=== PATIENT | female | born 1995 | race Caucasian/White ===

== ENCOUNTER → 2021-03-18 12:22 | Outpatient (CLI) | payer OTHER, SELFPAY ==
--- NOTE | 2021-03-18 | DI.MRI.S_ITS ---
PROCEDURE: MR SHOULDER LT WO CON INDICATIONS: Pain in right shoulder TECHNIQUE: Noncontrast oblique coronal T2 fast spin echo with fat saturation, oblique sagittal T1 spin echo and T2 fast spin echo with fat saturation, axial T1 spin echo and T2 fast spin echo with fat saturation through the shoulder. COMPARISON: [facility], MR, MR SHOULDER RT WO CON, 03/18/2021, 12:44. [facility] Outside Film, CR, XR SHOULDER 2+ VIEWS RIGHT, 01/16/2021, 9:25. FINDINGS: Image quality: Excellent. Rotator cuff: There is partial-thickness tear of the infraspinatus tendon involving both articular and bursal surfaces. There is supraspinatus and subscapularis tendinitis. The supraspinatus tendon appears intact. Sagittal images demonstrate no rotator cuff muscle atrophy. Bones and bursae: No bone marrow contusions or fractures. Mild acromioclavicular joint degeneration. The acromion demonstrates conventional anatomy, without an os acromiale. No pathologic subacromial-subdeltoid or subcoracoid bursal fluid is present. Capsule and soft tissues: Labrum appears intact. The long head of the biceps tendon demonstrates normal location and morphology. The rotator interval appears normal, without fibrosis. The coracohumeral ligament is normal in thickness. IMPRESSION: 1. Partial thickness tear of the infraspinatus tendon. 2. Supraspinatus and subscapularis tendinitis. 3. Mild acromioclavicular joint degeneration. Dictated by: Darrius Arias M.D. on 03/20/2021 at 9:11 Approved by: Darrius Arias M.D. on 03/20/2021 at 10:44
--- NOTE | 2021-03-18 | DI.MRI.S_ITS ---
PROCEDURE: MR SHOULDER RT WO CON INDICATIONS: Pain in right shoulder TECHNIQUE: Noncontrast oblique coronal T2 fast spin echo with fat saturation, oblique sagittal T1 spin echo and T2 fast spin echo with fat saturation, axial T1 spin echo and T2 fast spin echo with fat saturation through the shoulder. COMPARISON: [facility], MR, MR SHOULDER LT WO CON, 03/18/2021, 13:05. SN[facility] Outside Film, CR, XR SHOULDER 2+ VIEWS RIGHT, 01/16/2021, 9:25. FINDINGS: Image quality: Excellent. Rotator cuff: There is partial-thickness tear of the supraspinatus tendon involving the articular surface and the footprint. Mild subscapularis tendinitis. The infraspinatus appears intact. Sagittal images demonstrate no rotator cuff muscle atrophy. Bones and bursae: No bone marrow contusions or fractures. There is mild acromioclavicular joint degeneration. The acromion demonstrates conventional anatomy, without an os acromiale. Small subcoracoid bursal fluid is present suggesting mild bursitis. Capsule and soft tissues: Labrum appears intact The long head of the biceps tendon demonstrates normal location and morphology. The rotator interval appears normal, without fibrosis. The coracohumeral ligament is normal in thickness. IMPRESSION: 1. Partial thickness tear of the supraspinatus tendon. 2. Mild subscapularis tendinitis. 3. Mild acromioclavicular joint degeneration. 4. Mild subcoracoid bursitis. Dictated by: Darrius Arias M.D. on 03/20/2021 at 9:08 Approved by: Darrius Arias M.D. on 03/20/2021 at 10:39
== END ==
PROVIDERS: Referring Provider Family Medicine; Visit Provider Family Medicine
DX: M75.112 Incomplete rotator cuff tear or rupture of left shoulder, not specified as traumatic (principal); M75.111 Incomplete rotator cuff tear or rupture of right shoulder, not specified as traumatic; M19.011 Primary osteoarthritis, right shoulder; M19.012 Primary osteoarthritis, left shoulder; M77.8 Other enthesopathies, not elsewhere classified; M25.511 Pain in right shoulder; M25.512 Pain in left shoulder
CPT/HCPCS: 73221

== ENCOUNTER → 2021-04-05 07:12 | Outpatient (CLI) | payer OTHER, SELFPAY ==
--- NOTE | 2021-04-05 07:14 | DI.MRI.S_ITS ---
PROCEDURE: MR CERVICAL SPINE WO CON INDICATIONS: Cervicalgia TECHNIQUE: Noncontrast sagittal T1 spin echo and T2 fast spin echo, sagittal STIR, foraminal oblique sagittal T2 fast spin echo, and axial gradient echo or T2 fast spin echo through the cervical spine. COMPARISON: None. FINDINGS: Image quality: Excellent. Alignment and Curvature: There is loss of normal cervical lordosis. Bone Marrow: Marrow demonstrates normal overall signal. Spinal Cord: Visualized spinal cord has normal size and signal. No cerebellar tonsillar herniation. Paraspinous Soft Tissues: No paravertebral masses. Prevertebral soft tissues are normal in thickness. C2-C3: Normal appearance. C3-C4: Mild disc desiccation and diffuse disc bulge. Minimal canal stenosis. No foraminal stenosis. C4-C5: Mild disc desiccation. No significant canal, or foraminal stenosis. C5-C6: Normal appearance. C6-C7: Normal appearance. C7-T1: Normal appearance. IMPRESSION: 1. Loss of normal cervical lordosis, suggestive of muscle spasm. 2. No neural impingement. No significant canal, or foraminal stenosis. Dictated by: Deepti Foote M.D. on 04/05/2021 at 8:46 Approved by: Deepti Foote M.D. on 04/05/2021 at 8:49
== END ==
PROVIDERS: Referring Provider Family Medicine; Visit Provider Family Medicine
DX: M25.511 Pain in right shoulder (principal); M25.512 Pain in left shoulder; M54.2 Cervicalgia
CPT/HCPCS: 72141

== ENCOUNTER 2021-05-25 09:04 | Outpatient (CLI) | payer OTHER, SELFPAY | END 2021-06-06 11:26 | disposition home or self-care (01) | LOC: PHYS 09:06 | PROVIDERS: Family Provider Family Medicine; PCP Family Medicine; Referring Provider Physician Assistant; Visit Provider Physician Assistant | DX: R25.2 Cramp and spasm (principal) | CPT/HCPCS: 95886; 95910 ==

== ENCOUNTER 2021-09-29 10:58 | Emergency (ER) | payer OTHER, SELFPAY ==
[2021-09-29] VITALS (9 sets, daily range): BP systolic 117–128; BP diastolic 68–78; PULSE 67–75; RESP 12–27; TEMP 36.1; O2SAT 99–100; BMI 28.6
--- NOTE | 2021-09-29 12:09 | PC.NURSE ---
Reports cervical neck pain 5/10 shoots down my spine sometimes. Also reports tingling in fingers worse with neck pain. Denies any specific injury. Tylenol hasn't help and can't take PO ibuprofen due to it irritating her stomach. IV NSAIDS are okay.
[2021-09-29] MEDS: MECLIZINE HCL 12.5 MG TABLET 25 MG PO (14:03)
--- NOTE | 2021-09-29 18:14 | ED_ITS ---
HPI - Dizziness <SONIDO Majano - Last Filed: 09/29/21 19:32> General Chief Complaint: Dizziness Stated Complaint: Dizzy spell, Nausea Time Seen by Provider: 09/29/21 13:34 History of Present Illness HPI Narrative: This is a 26-year-old female presents to the emergency department dizziness and vertigo with head changes over the last 2-3 days. She endorses a history of small fiber neuropathy and states that she has a lot of neuropathy and pain issues since she had COVID. States that her neurologist is Dr. Moise from [facility], she endorses some tinnitus, a runny nose, some congestion, history of seasonal allergies. Patient endorses some nausea but denies any vomiting. She states that her dizziness is exacerbated by head movements, or position changes. She denies any syncope, denies any new vision changes. She states that she has had slightly blurred vision for many months now but denies any double vision, or acute vision changes. Related Data Previous Rx's Medication Instructions Recorded meclizine 25 mg tablet 25 mg PO DAILY PRN dizziness #14 09/29/21 tabs Review of Systems <SONIDO Majano - Last Filed: 09/29/21 19:32> Review of Systems Narrative: General: denies fever, chills Head/Neck: denies headache, neck pain Eyes: denies visual changes, eye pain Cardio: denies chest pain, palpitations Respiratory: denies shortness of breath, cough GI: denies abdominal pain, nausea, vomiting, or diarrhea : denies dysuria, hematuria or flank pain MSK: denies new joint pain, muscle weakness or swelling Skin: denies rash, itching or wound Neuro: denies unilateral or any new numbness or tingling, endorses dizziness over the last three days Patient History <SONIDO Majano - Last Filed: 09/29/21 19:32> Social History Smoking Status: Never smoker Smoking Status: Never smoker alcohol intake frequency: holidays/special occasions only Substance Use Type: does not use Exam <SONIDO Majano - Last Filed: 09/29/21 19:32> Narrative Exam Narrative: Independently reviewed vitals signs and nursing notes. General: cooperative, comfortable, in no acute distress, well groomed Head: atraumatic, symmetrical facial expressions Neck: supple Eyes: equal round and reactive, EOMI, conjunctiva normal Ears: Bilateral middle ear effusions without surrounding erythema or purulence, tympanic membranes are intact with positive light reflex and anatomical references Nose: nares patent, no rhinorrhea Mouth/Throat: moist mucus membranes Cardiovascular: regular rate and rhythm, no peripheral edema, warm extremities Respiratory: normal effort, able to speak in complete sentences, no audible wheezing, stridor, or rales. No retractions or tachypnea. GI: abdomen soft, nontender to palpation, nondistended, no masses, no exquisite tenderness with exam, without guarding or rebound. MSK: moves all extremities, neurovascularly intact, no weakness, normal tone, no differences unilaterally Skin: brisk capillary refill, no rash, no erythema Neuro: normal speech and cognition, A&O x3 Psych: mental status is grossly normal, congruent mood, normal affect, pleasant and cooperative Initial Vital Signs Initial Vital Signs: Vital Signs Temperature 97.0 F L 09/29/21 11:03 Pulse Rate 75 09/29/21 11:03 Respiratory Rate 16 09/29/21 11:03 Blood Pressure 128/72 09/29/21 11:03 Pulse Oximetry 99 09/29/21 11:03 Oxygen Delivery Method 09/29/21 11:03 <Dannie Gallego MD - Last Filed: 10/17/21 10:16> Initial Vital Signs Initial Vital Signs: Vital Signs Temperature 97.0 F L 09/29/21 11:03 Pulse Rate 75 09/29/21 11:03 Respiratory Rate 16 09/29/21 11:03 Blood Pressure 128/72 09/29/21 11:03 Pulse Oximetry 99 09/29/21 11:03 Oxygen Delivery Method 09/29/21 11:03 Course <SONIDO Majano - Last Filed: 09/29/21 19:32> Orders Ordered: Discontinued Medications Meclizine HCl (Meclizine Hcl 12.5 Mg Tablet) 25 mg PO NOW ONE Stop: 09/29/21 13:57 Last Admin: 09/29/21 14:03 Dose: 25 mg Documented By: ROSALINDA Vital Signs Vital signs: Vital Signs - 8 hr 09/29/21 11:30 09/29/21 11:58 09/29/21 11:58 Pulse Rate 73 69 Respiratory Rate 21 15 Blood Pressure 119/76 Pulse Oximetry 100 99 09/29/21 12:00 09/29/21 12:00 09/29/21 12:30 Pulse Rate 67 Respiratory Rate 12 Blood Pressure 119/72 121/68 Pulse Oximetry 100 09/29/21 12:30 09/29/21 13:00 09/29/21 13:00 Pulse Rate 71 74 Respiratory Rate 22 27 H Blood Pressure 119/69 Pulse Oximetry 99 99 09/29/21 13:30 09/29/21 13:30 09/29/21 14:00 Pulse Rate 75 Respiratory Rate 24 Blood Pressure 117/72 117/68 Pulse Oximetry 99 09/29/21 14:00 Pulse Rate 72 Respiratory Rate 21 Blood Pressure Pulse Oximetry 99 <Dannie Gallego MD - Last Filed: 10/17/21 10:16> Orders Ordered: Discontinued Medications Meclizine HCl (Meclizine Hcl 12.5 Mg Tablet) 25 mg PO NOW ONE Stop: 09/29/21 13:57 Last Admin: 09/29/21 14:03 Dose: 25 mg Documented By: ROSALINDA Vital Signs Vital signs: Vital Signs - 8 hr 09/29/21 11:30 09/29/21 11:58 09/29/21 11:58 Pulse Rate 73 69 Respiratory Rate 21 15 Blood Pressure 119/76 Pulse Oximetry 100 99 09/29/21 12:00 09/29/21 12:00 09/29/21 12:30 Pulse Rate 67 Respiratory Rate 12 Blood Pressure 119/72 121/68 Pulse Oximetry 100 09/29/21 12:30 09/29/21 13:00 09/29/21 13:00 Pulse Rate 71 74 Respiratory Rate 22 27 H Blood Pressure 119/69 Pulse Oximetry 99 99 09/29/21 13:30 09/29/21 13:30 09/29/21 14:00 Pulse Rate 75 Respiratory Rate 24 Blood Pressure 117/72 117/68 Pulse Oximetry 99 09/29/21 14:00 Pulse Rate 72 Respiratory Rate 21 Blood Pressure Pulse Oximetry 99 MDM - Dizziness <SONIDO Majano - Last Filed: 09/29/21 19:32> MDM Narrative Medical decision making narrative: This is a pleasant 26-year-old female who presents to the emergency department complaining of dizziness over the last three days, states that she has a history of small fiber neuropathy since her COVID infection and is concerned that this was related. She also endorses tinnitus, dizziness after sudden head movements, history of seasonal allergies, some nasal congestion, your pain and ear fullness. On exam, she has bilateral middle ear effusions without surrounding erythema or purulence. Recommend patient use cetirizine and/or fluticasone for congestion and allergy symptoms, she was given meclizine which she states helped with her dizziness sensation today. Discussed with her that this often goes away on its own without intervention, discuss that meclizine can prolong her symptoms of dizziness, encourage patient to follow-up with her physical therapist next Saturday at her scheduled appointment and ask for the Mathieu maneuver if she continues to have dizziness. She states that she has a referral to physical therapy already for her ongoing problem, and can get a prior authorization for vestibular physical therapy if needed. Encourage patient to return to the emergency department if she has any significant worsening or other concerns, encouraged her to follow up with her primary care provider and physical therapist. Patient has a neurologist at [facility], it is Dr. Moise, she has had a brain MRI in the last six months, did not have any lesions on it, states that she has been fully worked up for multiple sclerosis and this was not positive. Patient is appropriate and amenable to discharge home. Vital signs are stable on repeat examination is unremarkable. Patient has been informed of results. Patient has been given strict return to ER precautions for any new or worsening symptoms. Patient understands to follow up closely with outpatient providers as instructed. Patient understands plan and agrees to discharge home. All questions and concerns answered at this time. Discharge Plan Departure Patient Disposition: Home Clinical Impression: Benign paroxysmal positional vertigo Instructions: Benign Paroxysmal Positional Vertigo Activity Restrictions/Additional Instructions: *You have been diagnosed with BPPV. This usually will go way on its own, it starts with recurrent episodes of dizziness lasting a minute last that are usually provoked by head movement. This could be related to a middle ear effusion and seasonal allergies. Please use Zyrtec nightly to see if this makes any difference for you. You may add Flonase or fluticasone for an additional benefit. I have prescribed you some meclizine to use for severe dizziness. It might not be helpful in the chcf, and could prolong your symptoms for you, please follow-up with your primary care provider and your physical therapist next Saturday as scheduled. Please tell them that you might have BPPV and ask if they can perform the Mathieu maneuver for you. Please return to the emergency department if you have worsening or progressive dizziness, lightheadedness, vision changes, imbalance or unstable gait. Please let your neurologist know that this is going on if it does not improve over the next week. *What to do: *Please continue to take your regular medications as directed. [x ] New medication prescriptions sent to your pharmacy: [ [facility]] [ ] New medication written as a paper prescription [ ] No new medications given *Please follow up with your primary care provider in 2-3 days, call for an appointment. Let them know you were seen in the Emergency Department and that we asked that you be seen for follow-up. We will electronically transmit a record of today's note if your PCP is in our system *If you do not have a primary care provider please contact [phone] to establish care with one of [facility] primary care providers. *Return to Emergency Department if you should have any new, worsening or concerning symptoms, such as [fever greater than 101F, chills, worsening pain, persistent vomiting or other bothersome symptoms] Prescriptions: New meclizine 25 mg tablet 25 mg PO DAILY PRN (Reason: dizziness) Qty: 14 0RF Referrals: Natanael Dukes DO [Primary Care Provider] - Ever Moise, PHD [Non-Staff] - Visit Report Forms: Patient Portal/API <Dannie Gallego MD - Last Filed: 10/17/21 10:16> Su ED Attending Nalini Attestation: I was immediately available for consultation of this patient was seen and evaluated by the APC in the department.
== END 2021-09-29 14:41 | disposition home or self-care (01) ==
PROVIDERS: Emergency Provider Nurse Practitioner Critical Care Medicine; Family Provider Family Medicine; PCP Family Medicine
DX: H81.10 Benign paroxysmal vertigo, unspecified ear (principal)
CPT/HCPCS: 93005; 93010; 99283

== ENCOUNTER → 2022-05-12 12:32 | Outpatient (CLI) | payer OTHER, SELFPAY ==
--- NOTE | 2022-05-12 12:33 | DI.MRI.S_ITS ---
PROCEDURE: MR TMJ WO CON INDICATIONS: Unspecified temporomandibular joint disorder TECHNIQUE: Axial T1 spin echo, coronal and sagittal PD fast spin echo through the temporomandibular joints, in both the closed- and open-mouth positions. COMPARISON: None. FINDINGS: Image quality: Excellent. Right: Joint is normally aligned on closed and open-mouth positioning. The articular disc is irregular. On the open mouth images, the articular disc does not appropriately capture. On a few images, the right mandibular condyle appears irregular, with mild osteophyte formation. Left: Joint is normally aligned on closed and open-mouth positioning. Articular disk demonstrates normal location and morphology. No bony erosions or osteophytes. IMPRESSION: Abnormal right temporomandibular joint, with mild osteophyte formation. The right articular disc is irregular and does not appropriately capture on the open mouth images. Dictated by: Donald Maurice M.D. on 05/14/2022 at 10:25 Approved by: Donald Maurice M.D. on 05/14/2022 at 10:28
== END ==
PROVIDERS: Family Provider Family Medicine; PCP Family Medicine; Referring Provider Family Medicine; Visit Provider Family Medicine
DX: M26.601 Right temporomandibular joint disorder, unspecified (principal)
CPT/HCPCS: 70336